=== PATIENT | male | born 1960 | race Caucasian/White ===

== ENCOUNTER 2023-07-20 13:30 | Emergency (ER) | payer OTHER, SELFPAY ==
[2023-07-20 13:41] VITALS: BP 138/85
--- NOTE | 2023-07-20 15:56 | ED.GENMED ---
History of Present Illness
General
Chief Complaint: Musculo-Skeletal Complaint
Source: patient
Time Seen by Provider: 07/20/23 15:03
Travel History
Have you had any contact with someone who has COVID-19?: No
Do you have any symptoms of coronavirus? Fever > 100 degrees, chills, cough, shortness of breath, sore throat, loss of taste or smell, muscle aches, or headache?: No
History of Present Illness
History of Present Illness:
63-year-old male presenting the emergency department for evaluation of right posterior calf pain x 2 weeks, unchanged today but due to persistent nature of symptoms decided to come to the ER to make sure he did not have a DVT. Patient states his
only risk factor was recent flight to [place]. Denies any fevers, infectious symptoms, cough, pleurisy, chest pain, palpitations or any other concerns.
Past History
Past History
ED Past Medical History: GERD and Psychiatric (OCD)
ED Past Surgical History: Orthopedic (Rotator cuff repair, right knee, mandible fracture) and Other (Hernia)
Social History
Tobacco: Non-smoker
Alcohol: Occasional (rare)
Drug: None
Personal:
Living: with family
Employment: Employed
Family History
Family History: Negative CAD
Review of Systems
Review of Systems
All Other Systems: ROS reviewed and negative except as documented in HPI and ROS
Phy Exam
Physical Exam
Physical Exam:
GENERAL: Alert , in no apparent distress
EYE: conjunctiva clear
Head: Normocephalic atraumatic
NECK: Supple,
ENT: mmm.
LUNGS: no acute respiratory distress
NEUROLOGICAL: Alert and oriented
SKIN: Warm and dry, skin intact.
MUSCULOSKELETAL: well perfused. Easily palpable pedal and tibial pulse. Cap refill less than 2 seconds and sensation is grossly intact to light touch. No obvious edema when compared to the left lower extremity. No palpable cords or masses.
PSYCH: Normal and appropriate interaction.
Scores
Heart Failure Risk
Heart Failure Risk Score: Not Applicable
Heart Score for Chest Pain Patients
STEMI patient?: Not applicable
Withdrawal Assessment of Alcohol
Withdrawal Assessment Completed?: Not applicable
Course
Orders/Labs/Results
Orders:
Orders
07/20/23 15:04
US Periph Venous LOWER Ext RT Urgent
Comment:
Reason For Exam: pain right gastrocnemius
Vital Signs
Initial and Last Documented VS:
Initial Vital Signs
Temp Pulse Resp BP Pulse Ox
98.1 F 84 18 138/85 96
07/20/23 13:41 07/20/23 13:41 07/20/23 13:41 07/20/23 13:41 07/20/23 13:41
Last Documented Vital Signs
Temp Pulse Resp BP Pulse Ox
98.1 F 70 18 146/85 96
07/20/23 13:41 07/20/23 16:40 07/20/23 13:41 07/20/23 16:40 07/20/23 13:41
MDM/Problems Addressed
Differential Diagnosis Includes:
DVT, SVT/phlebitis, strain
MDM/Problems Addressed:
63 male presenting to the emergency department for evaluation of right gastrocnemius tenderness. Patient most concerned for DVT. No signs for peripheral arterial disease or intermittent claudication. Venous ultrasound ordered to further assess.
Disposition pending.
*Radiology
Radiology exam reviewed: radiology read reviewed
*Pulse Oximetry
Patient hypoxic: no
*Critical Care Note
Total Time (30-74mins, 75-104mins- exclusive of procedures): Not Applicable
Patient Management
Escalation/DeEscalation of care consider admission/obs:
US negative for DVT/phlebitis. Patient stable for d/c home and outpatient management. Aware of return precautions to ED
ED Attending Note
-
Portions of this chart may have been created with voice recognition software.� Occasional wrong word or��sound alike� substitutions may have occurred due to the inherent limitations of voice recognition software.
Discharge Plan
Departure
Patient Disposition: Home (Routine Discharge)
Date of Disposition: 07/20/23
Time of Disposition: 16:31
Patient with high blood pressure during this ER visit?: No
Discharge Problem:
Pain of right calf
Instructions: Lower Extremity Muscle Strain (DC)
Prescriptions:
No Action
fluoxetine 10 MG capsule
10 mg PO DAILY
aspirin 81 MG tablet,chewable
81 mg PO DAILY 0RF
Interventions
Interventions:
*Risk Screen - Suicide Last Done: 07/20/23 13:41
*General Assessment Last Done: 07/20/23 13:41
*Neglect/Abuse Screening Last Done: 07/20/23 13:41
*ED COVID-19 Vaccine History Last Done: 07/20/23 13:41
*Nursing Disposition Last Done: 07/20/23 16:40
ED-Musculoskeletal Assessment Last Done: 07/20/23 16:30
Discharge Date and Time
Print Language: MACEDONIAN
[2023-07-20 16:39] VITALS: BP 146/85
[2023-07-20 16:40] VITALS: BP 146/85
== END 2023-07-20 16:53 | disposition home or self-care (01) ==
LOC: EMR 13:30
PROVIDERS: EMERGENCY PHYSICIAN Emergency Medicine; FAMILY PHYSICIAN Family Medicine
DX: M79.661 Pain in right lower leg (principal); K21.9 Gastro-esophageal reflux disease without esophagitis; F42.9 Obsessive-compulsive disorder, unspecified; Z91.040 Latex allergy status; Z91.018 Allergy to other foods; Z79.82 Long term (current) use of aspirin
CPT/HCPCS: 99284; 93971